=== PATIENT | male | born 1980 | race Caucasian/White ===

== ENCOUNTER → 2020-02-02 11:41 | Outpatient (CLI) | payer OTHER, SELFPAY ==
[2020-02-02 14:30] LABS: Hemoglobin A1c 8.1 % (3.8-5.6)
== END ==
PROVIDERS: Referring Provider Internal Medicine; Visit Provider Internal Medicine
DX: E10.9 Type 1 diabetes mellitus without complications (principal); Z79.4 Long term (current) use of insulin
CPT/HCPCS: 36415; 83036

== ENCOUNTER → 2020-02-05 | Outpatient (CLI) | payer OTHER, SELFPAY | END | disposition home or self-care (01) | LOC: LABSPEC 15:29 | PROVIDERS: Referring Provider Physician Assistant; Visit Provider Physician Assistant | DX: U07.1 COVID-19 (principal) | CPT/HCPCS: 87635; U0003 ==

== ENCOUNTER 2020-04-18 21:16 | Emergency (ER) | payer OTHER, SELFPAY ==
[2020-04-18 21:17] VITALS: BP 159/114; PULSE 79; RESP 16; TEMP 36.6; O2SAT 98; BMI 33.0
[2020-04-18] MEDS: Lidocaine 1% (20 ml mdv) 20 ML Vial INFILT (22:16)
[2020-04-18] MEDS: Diphth,Pertuss(Acell),Tet Vac 0.5 ML Vial IM (22:17)
--- NOTE | 2020-04-18 22:19 | ED.VIS.INJ ---
History of Present Illness Chief Complaint: Laceration Informant: Patient Onset: Today Mechanism/Context: Blunt Injury Quality of Pain: Dull, Aching Location: Distal left thumb Current Severity: Mild Maximum Severity: Moderate Worsened by: Pressure Relieved by: Rest Associated Symptoms: Loss of function. Negative for: Parasthesias, Weakness, Inability to ambulate, Loss of consciousness Narrative: Dalton is a 39-year-old ambidextrous male who presents with injury to the tip of his left finger. Tetanus is unknown. He denies paresthesia, anesthesia medics. He complains of pain with movement. He is not on anticoagulant. He has no stomach a past medical history. He has no allergies. Tetanus Immunization: >10 years Prior similar symptoms: No Recent Illness/Hospitalization: No - Past Medical History (1) COVID-19 ruled out Status: Acute Past Medical History - Allergies and Home Meds Allergies/Adverse Reactions: Allergies No Known Allergies Allergy (Verified 04/18/20 21:19) Primary Care Physician: Care Physician,No Primary [Primary Care Provider] - Prior records reviewed: Yes - No significant past medical history Surgical History: noncontributory Lives: Spouse/ Significant Other Smoking Status: Never smoker Alcohol: Rare Drugs: None Review of Systems Musculoskeletal: Reports: Swelling, Extremity Pain. Denies: Myalgias, Arthralgias, Neck pain, Back pain Skin: Reports: Wounds. Denies: Rash Neurological: Denies: Weakness, Parasthesia, Numbness Hematologic: Denies: Easy bruising, Easy bleeding Physical Exam Vital Signs/Narrative: Vital Signs Temp Pulse Resp BP Pulse Ox 04/18/20 21:17 97.9 F 79 16 159/114 H 98 Inital Vital Signs reviewed: Yes General: Well nourished, Well developed, Obese Head: Normocephalic, Atraumatic Eyes: Perrl, EOMI Cardiovascular: Regular rate, Regular rhythm Respiratory: No distress Skin: Normal color, Trauma - Has a laceration tip of the left finger with evidence of nailbed injury and subungual hematoma., - - The extensor pollicis longus is intact. Flexor tendons are intact. There is no laxity of the collateral ligaments of the IP joint. Sensation is altered at the tip. Capillary refill is normal. Neurological: Alert, Oriented x3, Cranial nerves II-XII grossly intact, Normal Strength, Normal Sensation - Glascow Coma Scale Eye Opening: Spontaneous Motor: Obeys Commands Verbal: Oriented Coma Scale Total: 15 Diagnostic/Tx/Re-eval Chest X-Ray - ED: Read by ED Physician - Three-view x-ray of the left thumb was obtained. Patient has a tuft fracture. There is no evidence of foreign body. - Medical Decision Making I was obtained because of concern for open tuft fracture. Tetanus was updated. Patient was informed that his nail needs to be removed. The nailbed will require repair. If there is evidence of fracture will place on antibiotics and referred to orthopedics interventional physiatrist. Since patient has an open tuft fracture he received 1 g of Ancef. He was prescribed penicillin. He was referred to Dr. Terrance Mccarthy for follow-up. Please read procedure note Procedures Procedure(s): Patient's thumb was anesthetized by digital and superficial radial nerve block. A total of 6 cc of 1% lidocaine was instilled. The digit was cleansed. The nail was removed. The laceration was irrigated with 250 cc of sterile saline. The skin portion was 1.6 cm and a flap-like laceration. A total of 4 simple of sutures was placed using 5-0 Ethilon. The nailbed was repaired using 5-0 Vicryl. A total of 5 stitches were placed. The nail was cleansed. The nail was sutured back in place. Patient tolerated procedure well without complications. ED Disposition - Plan for ED Patient: Disposition: Home or Assisted Living Diagnosis: Open fracture of tuft of distal phalanx of left thumb, Laceration of left thumb with damage to nail Instructions: ED Open Hand Fracture (Adult), ED Laceration, Hand: All Closures Prescriptions: Cephalexin [Keflex] 500 mg PO Q6 #20 cap Prescription Printed Referrals: Care Physician,No Primary [Primary Care Provider] - Terrance Mccarthy DO [STAFF PHYSICIAN] - 2 Days for wound check Additional Instructions: 1. Keep thumb clean and dry 2. Take antibiotics until gone 3. Wear splint
--- NOTE | 2020-04-18 22:20 | RAD_ITS ---
HISTORY: lac to tip of left thumb ADDITIONAL HISTORY: None provided. EXAMINATION/TECHNIQUE: XR Fingers Min 2 Views Left Hand Number of images including paperwork: 3 COMPARISON: None FINDINGS: BONES: Displaced fracture fragment arising from the distal tuft of the thumb. JOINTS: No subluxation. SOFT TISSUES: No distinct foreign body. Soft tissue swelling. RAD/Finger(s) Min 2 Views IMPRESSION: Left thumb distal tuft fracture. Given the provided history of laceration, this may be an open fracture. at 2241 Reported and signed by: Karina Hernandez MD Electronically Signed: Karina Hernandez MD at 22:41 EST Tel , Service support ,
[2020-04-18] MEDS: Cefazolin 1 GM/5 ML Vial IM (23:52)
== END 2020-04-19 00:08 | disposition home or self-care (01) ==
PROVIDERS: Emergency Provider Emergency Medicine
DX: S62.522A Displaced fracture of distal phalanx of left thumb, initial encounter for closed fracture (principal); Z23 Encounter for immunization; X58.XXXA Exposure to other specified factors, initial encounter; Y93.9 Activity, unspecified; Y92.9 Unspecified place or not applicable; Y99.9 Unspecified external cause status; E66.9 Obesity, unspecified
CPT/HCPCS: 11760; 12001; 73140; 90715; 96372; 99283

== ENCOUNTER 2021-02-28 15:41 | Outpatient (CLI) | payer BC, SELFPAY ==
[2021-02-28 16:52] LABS: Hemoglobin A1c 8.2 % (3.8-5.6)
== END 2021-02-28 23:59 | disposition short-term general hospital (02) ==
LOC: LAB 15:48
PROVIDERS: Visit Provider Internal Medicine
DX: E10.9 Type 1 diabetes mellitus without complications (principal); Z79.4 Long term (current) use of insulin
CPT/HCPCS: 36415; 83036

== ENCOUNTER → 2022-04-07 | Outpatient (CLI) | payer BC, SELFPAY ==
[2022-04-07 08:25] LABS: Hematocrit 47.2 % (40-54); Hemoglobin 16.1 g/dL (13.0-16.5); Mean Corp Hgb Conc 34.1 g/dL (32-36); Mean Corpuscular Hgb 31.5 pg (27.0-32.0); Mean Corpuscular Volume 92.4 fL (80-94); Mean Platelet Vol. 10.1 fl (6.2-12.0); Platelet Count 240 K/mm3 (150-450); RBC Distribution Width CV 11.8 % (11.6-14.6); RBC Distribution Width SD 40.2 fl (35.1-43.9); Red Blood Count 5.11 M/mm3 (4.6-6.2); White Blood Count 5.1 K/mm3 (4.4-11.0)
[2022-04-07 08:43] LABS: Hemoglobin A1c 7.4 % (3.8-5.6)
[2022-04-07 08:54] LABS: ALB/GLOB Ratio 1.5 RATIO (0.9-2.4); AST(SGOT) 18 U/L (15-37); Alanine Aminotransfer ALT/SGPT 34 U/L (16-61); Albumin, Serum 3.9 g/dL (3.2-5.0); Alkaline Phosphatase 60 U/L (45-117); Anion Gap 7 (5-15); BUN 12 mg/dL (7-18); BUN/Creat Ratio 16.1 RATIO (10-20); Calcium,Total 8.4 mg/dL (8.5-10.1); Chloride 107 mmol/L (98-107); Cholesterol 123 mg/dL (200); Creatinine, Serum 0.74 mg/dL (0.70-1.30); EST Glomerular Filtration Rate 124 mL/min (>60); Est Glom Filt Rate - Afr Amer 150 mL/min (>60); Globulin 2.6 g/dL (2.2-4.2); Glucose 211 mg/dL (74-106); High Density Lipoprotein 31 mg/dL; Potassium 3.9 mmol/L (3.5-5.1); Protein, Total 6.5 g/dL (6.4-8.2); Sodium Level 141 mmol/L (136-145); Triglycerides 136 mg/dL; Very Low Density Lipoprotein 27 mg/dL (5-40)
[2022-04-07 08:58] LABS: Microalbumin,Random Urine 16.3 mg/L (NO RANGE EST.)
== END | disposition home or self-care (01) ==
LOC: LAB 07:43
PROVIDERS: Visit Provider Internal Medicine
DX: E10.9 Type 1 diabetes mellitus without complications (principal); Z79.4 Long term (current) use of insulin
CPT/HCPCS: 36415; 80053; 80061; 82043; 82570; 83036; 84443; 85027

== ENCOUNTER 2022-08-11 23:56 | Emergency (ER) | payer BC, SELFPAY ==
[2022-08-11 23:57] VITALS: BP 147/82; PULSE 77; RESP 18; TEMP 36.3; O2SAT 97; BMI 33.7
--- NOTE | 2022-08-12 00:05 | RAD_ITS ---
EXAM: XR LEFT KNEE, 1 OR 2 VIEWS CLINICAL INDICATION: trauma TECHNIQUE: Frontal and/or lateral views of the left knee. COMPARISON: No relevant prior studies available. FINDINGS: BONES/JOINTS: There is an acute nondisplaced intra-articular fracture of the proximal left tibia. A thin curvilinear fracture line extends obliquely through the proximal shaft of the tibia, with linear extension of this fracture line into the medial aspect of the lateral tibial plateau. There is no step-off along the tibial plateau articulating surface. Lateral view shows extension of the fracture line through the superior aspect of the anterior tibial tuberosity, nondisplaced. There is associated nondisplaced fracture through the distal tip of the fibula. No fracture of the distal femur or patella is identified. There is no dislocation. SOFT TISSUES: Soft tissue swelling noted about the anterior and medial aspect of the knee. Lipohemarthrosis noted within the suprapatellar bursa. RAD/Knee 1 or 2 Views IMPRESSION: Comminuted nondisplaced fracture of the proximal left tibia, with fracture lines extending into the anterior tibial tuberosity and lateral tibial plateau. Associated lipohemarthrosis. Nondisplaced fracture through the cortex of the superior tip of the fibula. Electronically Signed: Brandon Michel MD at 0:53 EDT ,
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
[2022-08-12] MEDS: oxyCODONE 5 MG Tablet PO (01:17)
== END 2022-08-12 01:33 | disposition home or self-care (01) ==
PROVIDERS: Emergency Provider Student in an Organized Health Care Education/Training Program; Visit Provider Student in an Organized Health Care Education/Training Program
DX: S82.145A Nondisplaced bicondylar fracture of left tibia, initial encounter for closed fracture (principal); E11.9 Type 2 diabetes mellitus without complications; Z79.4 Long term (current) use of insulin; S82.832A Other fracture of upper and lower end of left fibula, initial encounter for closed fracture; V99.XXXA Unspecified transport accident, initial encounter
CPT/HCPCS: 73560; 73590; 99284

== ENCOUNTER → 2022-11-27 | Outpatient (CLI) | payer BC, SELFPAY ==
[2022-11-27 17:36] LABS: Hemoglobin A1c 6.4 % (3.8-5.6)
== END | disposition home or self-care (01) ==
PROVIDERS: Referring Provider Internal Medicine; Visit Provider Internal Medicine
DX: E10.9 Type 1 diabetes mellitus without complications (principal); Z79.4 Long term (current) use of insulin
CPT/HCPCS: 36415; 83036

== ENCOUNTER 2023-10-19 20:09 | Emergency (ER) | payer BC, SELFPAY ==
[2023-10-19 20:10] VITALS: BP 158/78; PULSE 75; RESP 16; TEMP 36.8; O2SAT 98; BMI 34.0
--- NOTE | 2023-10-19 21:42 | RAD_ITS ---
INDICATION: PAIN EXAMINATION/TECHNIQUE: X-RAY - LEFT XR Knee 3 Views COMPARISON: 08/12/2022. FINDINGS: SOFT TISSUES: Superior patellar soft tissue swelling and effusion. BONES/JOINTS: Fracture of the upper pole of the patella with a large fracture fragment displaced proximally. Mild degenerative changes. No erosive changes. RAD/Knee 3 Views IMPRESSION: Fracture of the patella with the upper pole of the patella displaced superiorly. Electronically Signed: Capo Fairchild DO at 22:16 EDT ,
[2023-10-19] MEDS: Ondansetron ODT 4 MG Tablet PO (23:19)
[2023-10-19] MEDS: HYDROcodone Bitartrate/Apap 5/325 Tablet PO (23:19)
[2023-10-19 23:25] VITALS: BP 148/77; PULSE 82; RESP 18; TEMP 36.8; O2SAT 97
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
== END 2023-10-20 00:14 | disposition home or self-care (01) ==
PROVIDERS: Emergency Provider Emergency Medicine; Visit Provider Emergency Medicine
DX: S82.002A Unspecified fracture of left patella, initial encounter for closed fracture (principal); E11.9 Type 2 diabetes mellitus without complications; Z79.4 Long term (current) use of insulin; X58.XXXA Exposure to other specified factors, initial encounter; Z79.899 Other long term (current) drug therapy
CPT/HCPCS: 73562; 99284

== ENCOUNTER 2023-10-25 11:47 | Day surgery (SDC) | payer BC, SELFPAY ==
[2023-10-23 13:12] LABS: Absolute Lymphocyte Count 2.08 X10^3/uL (0.83-4.51); Absolute Neutrophil Count 5.5 X10^3/uL (2.0-7.7); Basophil# 0.07 X10^3/uL; Basophil% 0.9 % (0-1); Eosinophil# 0.05 X10^3/uL; Eosinophils% 0.6 % (0-5); Hemoglobin 15.4 g/dL (13.0-16.5); Lymphocyte # 2.08 X10^3/ul (0.83-4.51); Lymphocyte % 25.5 % (19-41); Mean Corp Hgb Conc 34.2 g/dL (32-36); Mean Corpuscular Hgb 31.7 pg (27.0-32.0); Mean Corpuscular Volume 92.6 fL (80-94); Mean Platelet Vol. 10.2 fl (6.2-12.0); Monocyte# 0.41 X10^3/uL; NRBC Flagged by Analyzer 0 % (0-5); Neutrophil # 5.51 X10^3/uL (2.7-7.7); Neutrophil % 67.6 % (47-70); Platelet Count 264 K/mm3 (150-450); Red Blood Count 4.86 M/mm3 (4.6-6.2); White Blood Count 8.2 K/mm3 (4.4-11.0)
[2023-10-23 15:07] LABS: Anion Gap 8 (5-15); BUN 13 mg/dL (7-18); Calcium,Total 8.9 mg/dL (8.5-10.1); Chloride 106 mmol/L (98-107); Creatinine, Serum 0.76 mg/dL (0.70-1.30); EST Glomerular Filtration Rate 119 mL/min (>60); Est Glom Filt Rate - Afr Amer 144 mL/min (>60); Glucose 201 mg/dL (74-106); Sodium Level 137 mmol/L (136-145)
[2023-10-23 16:34] LABS: Hemoglobin A1c 7.1 % (3.8-5.6)
[2023-10-25] VITALS (16 sets, daily range): BP systolic 137–176; BP diastolic 76–120; PULSE 66–102; RESP 14–18; TEMP 36.2–37.1; O2SAT 89–97; BMI 33.1
--- NOTE | 2023-10-25 12:07 | EKG12_ITS ---
Test Reason : pre op Blood Pressure : / mmHG Vent. Rate : 068 BPM Atrial Rate : 068 BPM P-R Int : 150 ms QRS Dur : 092 ms QT Int : 394 ms P-R-T Axes : 050 041 038 degrees QTc Int : 418 ms Normal sinus rhythm Normal ECG No previous ECGs available Confirmed by Terrance Rosales ([id number]), restaurant expeditor SARAH HAILE ([id number]) on 10/26/2023 6:36:08 AM Referred By: Lon Clinton Confirmed By:Terrance Rosales
[2023-10-25] MEDS: Lactated Ringers 1,000 ML 15 ML IV ×2 (12:31→16:42)
[2023-10-25 12:55] LABS: Bedside Glucose 143 mg/dL (74-106)
--- NOTE | 2023-10-25 13:29 | PCM.PRE.AN2 ---
ASA Classification* ASA Classification ASA Classification: 3 Assessment & Plan Anesthesia* Anesthesia Assessment Anesthesia Assessment: Discussed sedation and/or anesthesia options, risks, benefits, and alternatives with patient/parents/legal guardian/POA. Questions invited. The patient/parents/legal guardian/POA seems to understand and agrees to proceed with anesthesia plan. Reviewed the physical assessment, medical history, allergy history and patient home medications list prior to surgery/procedure/anesthetic and documented any changes. Performed airway and anesthesia risk assessments. Anesthesia Type Anesthesia Type: General and Block (Consented for Aductor canal block if Dr. Clinton requests for patient. Risks/ benefits discussed. ) Anesthesia Focused Assessment* Temperature: 98.7 F Pulse Rate: 66 Blood Pressure: 137/84 Respiratory Rate: 16 Pulse Ox: 95 Airway Assessment Mouth opens: >3 cm Mallampati Score: III Focused Labs Anesthesia Preop lab: CBC WBC 8.2 K/mm3 (4.4-11.0) 10/23/23 12:52 RBC 4.86 M/mm3 (4.6-6.2) 10/23/23 12:52 Hgb 15.4 g/dL (13.0-16.5) 10/23/23 12:52 Hct 45.0 % (40-54) 10/23/23 12:52 Plt Count 264 K/mm3 (150-450) 10/23/23 12:52 CHEMISTRY Potassium 4.0 mmol/L (3.5-5.1) 10/23/23 12:52 Sodium 137 mmol/L (136-145) 10/23/23 12:52 BUN 13 mg/dL (7-18) 10/23/23 12:52 Creatinine 0.76 mg/dL (0.70-1.30) 10/23/23 12:52 Glucose 201 mg/dL (74-106) H 10/23/23 12:52 POC Glucose 143 mg/dL (74-106) H 10/25/23 12:24 TSH 3.20 uIU/mL (0.358-3.74) 04/07/22 07:49 COAG Pre-Assessment Diagnosis/Proposed Procedure Planned Operative Procedure(s): ORIF LEFT PATELLA Anesthesia History 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 When Was Last Pacemaker Check QUESTION #4 FULL TEXT: You/Your Family Experience fever (hyperthermia) with Anesthesia Last Oral Intake Last Oral intake: Last Oral Intake NPO since 11:30 10/25/23 12:19 Meds taken in AM with sips of Yes 10/25/23 12:19 water? Meds patient instructed to medlist 10/25/23 12:19 take am of surgery PONV PONV - securities compliance examiner: PONV - securities compliance examiner Female No 10/24/23 08:05 HX of Motion Sickness No 10/24/23 08:05 HX of N/V After Surgery No 10/24/23 08:05 Non-Smoker Yes 10/24/23 08:05 Duration of Surgery greater Yes 10/24/23 08:05 than 60 minutes Number of Risk Factors 2 10/24/23 08:05 PONV Score Moderate Risk 10/24/23 08:05 Height & Weight Height & Weight: Anesthesia: Height & Weight Height 6 ft 1 in 10/25/23 12:19 Weight: 114 kg 10/25/23 12:19 Body Mass Index (BMI) 33.1 10/25/23 12:19 Respiratory Assessment Respiratory Assessment - securities compliance examiner: Respiratory Tract Infection Hx - securities compliance examiner Hx Respiratory Tract Infection No 10/24/23 08:05 STOP Sleep Apnea STOP Sleep Apnea - securities compliance examiner: STOP Sleep Apnea - securities compliance examiner Hx Hypertension No 10/24/23 08:05 Hx Sleep Apnea No 10/24/23 08:05 CPAP BIPAP Do you snore loudly (louder Yes 10/24/23 08:05 than talking or can be heard Do you often feel tired/ No 10/24/23 08:05 fatigued/ sleepy during daytime? Has anyone observed you stop No 10/24/23 08:05 breathing during sleep? STOP Results Negative 10/24/23 08:05 QUESTION #5 FULL TEXT : Do you snore loudly (louder than talking or can be heard through closed doors)? 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 Specify any problems Hx of Preganancy in last 3 N/A 10/24/23 08:05 Months Nurse Filling Out Transfusion DSCHRIBER 10/24/23 08:05 & Questions: Date: 10/24/23 10/24/23 08:05 Time: 08:07 10/24/23 08:05 Patient unable to answer at this time (ie. confused, unrespo /Reproduction History /Reproductive History - securities compliance examiner: /Reproductive Hx- securities compliance examiner Hx Now No 10/24/23 08:05 Gestational Age (in weeks): EDC: Hx Hx Para Hx Section SAB No 10/24/23 08:05 Active Medications Active Medications: Current Medications Generic Name Dose Route Start Last Admin Trade Name Freq PRN Reason Stop Dose Admin Cefazolin Sodium 2 gm/ Sodium 110 mls @ 150 mls/hr 10/25/23 13:30 Chloride IV 10/25/23 14:13 PREOP ONE Lactated Ringer's 1,000 mls @ 15 mls/hr 10/25/23 12:15 10/25/23 12:31 IV 15 mls/hr .Q48H YULIET Administration PFSH Medical History (Updated 10/24/23 @ 08:14 by Chelly Mitchell) Tibia/fibula fracture Wears glasses Arthritis Insulin dependent diabetes mellitus Seizures Dietary restriction Heartburn Leg cramps Non-smoker History of edema Home Medications ?Medication ?Instructions ?Recorded ?Last Taken ?Type insulin lispro 100 unit/mL 150 units continuous subcutaneous 04/18/20 Unknown History subcutaneous solution infusion DAILY ondansetron 4 mg disintegrating 4 mg PO Q6H PRN nausea and 10/19/23 Unknown Rx tablet vomiting #14 tabs oxycodone-acetaminophen 5 mg-325 1 tab PO Q6H PRN pain 3 days #12 10/19/23 10/25/23 11:30 Rx mg tablet (Endocet) tabs Allergy/AdvReac Type Severity Reaction Status Date / Time No Known Allergies Allergy Verified 10/25/23 12:12 Surgical History (Updated 10/24/23 @ 08:11 by Chelly Mitchell) Hx of appendectomy Social History Smoking Status: Never smoker Review of Systems (Anesthesia) ROS Narrative System reviewed and no additional complaints, except as documented.
[2023-10-25] MEDS: Cefazolin 2 GM in 0.9% Normal Saline (100mL Bag) 100 ML IV (14:00)
--- NOTE | 2023-10-25 14:00 | RAD_ITS ---
STUDY: X-RAY - LEFT KNEE REASON FOR EXAM: Male, 43 years old. FX PATELLA TECHNIQUE: 7 C-arm view(s) of the knee. 79 seconds fluoroscopy time. COMPARISON: 10/19/2023. FINDINGS: Multiple C-arm images show ORIF patellar fracture into anatomic alignment and position. Correlate with procedure note. Electronically Signed: Chester Bello MD at 16:47 EDT , RAD/Knee 1 or 2 Views IMPRESSION: undefined
[2023-10-25] MEDS: TRANEXAMIC ACID 1,000 MG in 0.9% Normal Saline (100mL Bag) 100 ML 660 MG IV (14:29)
--- NOTE | 2023-10-25 15:25 | PCM.OP.BLANK ---
Problems Associated Problem List Diagnoses (1) Fracture, patella: Operative Report Preoperative diagnosis: Left patella fracture comminuted displaced Postoperative diagnosis: Same Procedure: Open reduction internal fixation left patella fracture Surgeon: Dr. Lon Clinton General Medical Practitioner: Shiela Mansfield PA-C Anesthesia: GA, katlin Barney CRNA postoperative femoral nerve block Special medications: Ancef 2 g, Tranexamic acid 1 g IV preop Complications: None EBL: 50 Indications for surgery: Patient is a 43 -year-old male fractured her left patella a few days ago. he did wish to proceed with surgical open reduction internal fixation. Appropriate informed consent was obtained and signed Findings: Comminuted proximal left transverse patella fracture unstable, displaced. he underwent internal fixation using Arthrex patellar fracture set with cannulated screws and FiberWire Procedure: Patient was taken to the operating room transferred to the OR table. he was given a spinal anesthetic. Well-padded tourniquet applied to the right upper thigh but not inflated. Ancef given preoperatively. Tranexamic acid 1 g was given IV as well. Operative lower extremity was prepped padded draped in usual orthopedic sterile fashion for the procedure. Nonoperative lower extremity had GIA hose and SCDs on throughout. Operative lower extremity had a midline incision carried through skin subcutaneous tissue longitudinally over the patella. We came down into the hemarthrosis at the fracture site. Area was thoroughly irrigated. Fracture was ultimately reduced with the help of the family practice physician assistant and bone reduction clamps on the medial and lateral aspect. AP and lateral fluoroscopic images taken. There was comminution noted at the articular surface of the patella. Arthrotomy was carried out just medial to the inferior pole of the patella and surgeon's finger was used to reduce the intra-articular fragments. K wires were placed from the superior pole of the patella coming out distally near the inferior pole of the patella. Position of the K wires was verified under AP and lateral fluoroscopic imaging. Tip of the K wire was brought to just inside the patella at the distal pole. K wires were then measured. We then subtracted 4 mm as per technique. Appropriate drilling was done with a cannulated drill over the K wires. We then placed the appropriate length Arthrex 4 mm partially-threaded blunt-tipped cannulated screws with a washer antegrade over the K wires. Clinically and radiographically screw heads and washers were felt to be down on the superior pole of the patella. Position was verified clinically and radiographically. We then placed the suture through the medial screw from inferior to superior with a long needle. We then weaved this over the front of the bone and again going distal to proximal we have the suture through the more lateral screw. It was then brought over the bone and tightened and held with a clamp. AP and lateral and oblique fluoroscopic images taken to confirm our reduction. Clinically fracture was well reduced both in a articular surface from palpation and superior surface from visualization and palpation. Suture was now tied tightly over the bone. Once this was done another set of x-rays were taken and saved confirming our reduction. Clinically fracture was well reduced. Wound was thoroughly irrigated. Knee was flexed to about 60 degrees and fracture remain nicely reduced. Wound was again thoroughly irrigated. Arthrotomy was repaired with a #1 Vicryl in a running fashion. Deep tissue was closed with a #1 Vicryl in a [id number] fashion. Inverted 2-0 Vicryl subcu followed by beronica. Mepilex type bandage applied. GIA hose applied. Knee immobilizer applied. She was awoken from her anesthetic transferred to her own bed in recovery in satisfactory condition. he will be weightbearing as tolerated with her knee immobilizer on in full extension. Assuming fracture remains reduced radiographically we will start range of motion in 6 weeks 0 to 20 degrees, increasing 20 degrees every 2 weeks until full range of motion is gained. Ancef was used as a perioperative antibiotic 2 g preoperatively. Plan on aspirin 81 mg twice a day postoperatively for DVT prevention. This note was generated with [employer] dictation software. It may contain incorrect words, spelling, and punctuation that were not noted in checking the note before signing.
[2023-10-25 16:28] LABS: Bedside Glucose 232 mg/dL (74-106)
--- NOTE | 2023-10-25 16:28 | PCM.POST.ANE ---
Anesthesia: Postop Eval I Current Vital Signs Temperature: 97.2 F Pulse Rate: 99 Blood Pressure: 176/87 Respiratory Rate: 18 Pulse Ox: 92 Oxygen Delivery Method: Room Air Assessment Airway patent: Yes Spontaneous unlabored respirations: Yes Mental status: Awake and Calm nausea: No Vomiting: No Anesthesia Complication: No Fluid Hydration Crystalloid volume administer (ml): 900 Total IV fluid infused: 900 Progress Note Anesthesia document: Postop Eval 1 completed: Yes
[2023-10-25] MEDS: HYDROcodone Bitartrate/Apap 5/325 Tablet PO (17:54)
--- NOTE | 2023-10-26 07:16 | POSTOPAN2_ITS ---
Anesthesia Postop Eval I Sum Postop Eval Completion status Anesthesia document: Postop Eval 1 completed: Yes Anesthesia Postop Eval I Summary Anesthesia Postop Eval I Summary: Anesthesia Postop Eval I: Assessment Summary Airway patent Yes 10/25/23 16:28 STUDIO OPERATION ENGINEER.MDOT Spontaneous unlabored Yes 10/25/23 16:28 STUDIO OPERATION ENGINEER.MDOT respirations Mental status Awake,Calm 10/25/23 16:28 STUDIO OPERATION ENGINEER.MDOT nausea No 10/25/23 16:28 STUDIO OPERATION ENGINEER.MDOT Vomiting No 10/25/23 16:28 STUDIO OPERATION ENGINEER.MDOT Anesthesia Postop Eval I: Fluid Summary Crystalloid volume administer 900 10/25/23 16:28 STUDIO OPERATION ENGINEER.MDOT (ml) Colloids volume administered ( ml) Blood Product volume administered (ml) Total IV fluid infused 900 10/25/23 16:28 STUDIO OPERATION ENGINEER.OT Anesthesia Postop Eval I: Summary Notes Anesthesia Complication No 10/25/23 16:28 STUDIO OPERATION ENGINEER.OT Anesthesia Complication Comment: Post-operative progress note Anesthesia: Postop Eval II Evaluation Mental status: Awake Pain Level: 0 nausea: No Vomiting: No
--- NOTE | 2023-10-26 07:16 | PCM.POSTANE2 ---
Anesthesia Postop Eval I Sum Postop Eval Completion status Anesthesia document: Postop Eval 1 completed: Yes Anesthesia Postop Eval I Summary Anesthesia Postop Eval I Summary: Anesthesia Postop Eval I: Assessment Summary Airway patent Yes 10/25/23 16:28 FLIGHT ENGINEER.MDOT Spontaneous unlabored Yes 10/25/23 16:28 FLIGHT ENGINEER.MDOT respirations Mental status Awake,Calm 10/25/23 16:28 FLIGHT ENGINEER.MDOT nausea No 10/25/23 16:28 FLIGHT ENGINEER.MDOT Vomiting No 10/25/23 16:28 FLIGHT ENGINEER.MDOT Anesthesia Postop Eval I: Fluid Summary Crystalloid volume administer 900 10/25/23 16:28 FLIGHT ENGINEER.MDOT (ml) Colloids volume administered ( ml) Blood Product volume administered (ml) Total IV fluid infused 900 10/25/23 16:28 FLIGHT ENGINEER.OT Anesthesia Postop Eval I: Summary Notes Anesthesia Complication No 10/25/23 16:28 FLIGHT ENGINEER.OT Anesthesia Complication Comment: Post-operative progress note Anesthesia: Postop Eval II Evaluation Mental status: Awake Pain Level: 0 nausea: No Vomiting: No
== END 2023-10-25 18:43 | disposition home or self-care (01) ==
LOC: SDC 11:48 → AC 11:49
PROVIDERS: Referring Provider Orthopaedic Surgery; Visit Provider Orthopaedic Surgery
PROC: (CPT 27524; principal; 2023-10-25 13:15)
DX: S82.032A Displaced transverse fracture of left patella, initial encounter for closed fracture (principal); E11.9 Type 2 diabetes mellitus without complications; Z79.4 Long term (current) use of insulin; W01.0XXA Fall on same level from slipping, tripping and stumbling without subsequent striking against object, initial encounter; Y92.89 Other specified places as the place of occurrence of the external cause; R03.0 Elevated blood-pressure reading, without diagnosis of hypertension; E66.9 Obesity, unspecified; Z68.34 Body mass index [BMI] 34.0-34.9, adult
CPT/HCPCS: 27524; 64447; 36415; 73560; 76000; 80048; 82962; 83036; 85025; 93005; C1713; J7120; J2405

== ENCOUNTER → 2024-09-02 | Outpatient (CLI) | payer BC, SELFPAY ==
[2024-09-02 11:35] LABS: Hematocrit 45.6 % (40-54); Hemoglobin 15.6 g/dL (13.0-16.5); Mean Corp Hgb Conc 34.2 g/dL (32-36); Mean Corpuscular Volume 91.8 fL (80-94); Mean Platelet Vol. 10.0 fl (6.2-12.0); Platelet Count 227 K/mm3 (150-450); RBC Distribution Width CV 12.0 % (11.6-14.6); RBC Distribution Width SD 40.7 fl (35.1-43.9); Red Blood Count 4.97 M/mm3 (4.6-6.2); White Blood Count 5.9 K/mm3 (4.4-11.0)
[2024-09-02 12:53] LABS: AST(SGOT) 21 U/L (<=37); Alanine Aminotransfer ALT/SGPT 28 U/L (<=46); Albumin, Serum 4.3 g/dL (3.5-5.0); Alkaline Phosphatase 69 U/L (40-129); Anion Gap 11 (5-15); BUN 11 mg/dL (4-19); BUN/Creat Ratio 14.2 RATIO (10-20); Calcium,Total 8.6 mg/dL (7.6-11.0); Carbon Dioxide 22.6 mmol/L (21.0-32.0); Chloride 104 mmol/L (98-108); Cholesterol 137 mg/dL (<=200); Globulin 2.5 g/dL (2.2-4.2); Glucose 259 mg/dL (70-99); Low Density Lipoprotein Calc. 83 mg/dL; Potassium 4.4 mmol/L (3.3-5.1); Triglycerides 102 mg/dL; Very Low Density Lipoprotein 20 mg/dL (5-40); cholesterol:hdl ratio screen 4.05
[2024-09-03 19:18] LABS: Creatinine, Urine (random) 193.00 mg/dL (39.00-259.00)
[2024-09-03 19:20] LABS: Microalbumin,Random Urine 13.1 mg/L (NO RANGE EST.)
== END | disposition home or self-care (01) ==
LOC: LAB 10:55
PROVIDERS: Referring Provider Internal Medicine; Visit Provider Internal Medicine
DX: E10.9 Type 1 diabetes mellitus without complications (principal)
CPT/HCPCS: 36415; 80053; 80061; 82043; 82570; 83036; 84443; 85027